=== PATIENT | female | born 1985 | race African-American/Black ===

== ENCOUNTER 2021-04-20 18:40 | Emergency (ER) | payer OTHER ==
[~2021-04-20] VITALS: Ht 160 cm; Wt 133.4 kg
[2021-04-20] MEDS ORDERED: BACTRIM DS TAB1 EACH PO (19:15)
[2021-04-20 19:30] VITALS: BP 156/94
== END 2021-04-20 19:30 | disposition home or self-care (01) ==
LOC: FSED 19:10
DX: T21.21XA Burn of second degree of chest wall, initial encounter (principal); X12.XXXA Contact with other hot fluids, initial encounter; Y93.G3 Activity, cooking and baking; Y92.000 Kitchen of unspecified non-institutional (private) residence as the place of occurrence of the external cause; D64.9 Anemia, unspecified
CPT/HCPCS: 99282